=== PATIENT | female | born 1965 | race Asian ===

== ENCOUNTER 2017-03-08 14:55 | Inpatient (IN) | payer OTHER ==
[~2017-03-08] VITALS: Ht 160 cm; Wt 49.9 kg
--- NOTE | 2017-03-08 14:55 | NUR ---
Patient BIBA ACLS accompanied by Afsaneh ALLEN, transferred to bed 3. Dr. Rabago and RN evaluating patient at bedside.
[2017-03-08 14:57] VITALS: BP 133/72
--- NOTE | 2017-03-08 15:00 | NUR ---
52 F BIBA FROM WORK FOR NEAR-SYNCOPAL EPISODE. PT STATES SHE WAS AT WORK DRINKING WATER AND BEGAN TO FEEL LIGHTHEADED AND WEAK, DENIES LOC. B/P ON SCENE 50/37, HR 42. UPON ARRIVAL TO ER B/P 133/74, HR 74. PT A&O X4, ABLE TO ANSWER QUESTIONS APPROPRIATELY; NO ACUTE NEURO DEFICITS NOTED; RR ARE EVEN AND UNLABORED; PT IS NORMAL SINUS ON CM; PT DENIES ANY RECENT FEVERS, CP, SOB, OR COUGH AT THIS TIME; PATIENT STATES PAIN OF 0/10 AT THIS TIME; VSS; NAD; PATIENT POSITIONED FOR COMFORT; HOB ELEVATED; BEDRAILS UP X2; BED DOWN. ER MD MADE AWARE OF PT STATUS. WILL CONTINUE TO MONITOR
[2017-03-08] MEDS ORDERED: LOSA25TA22 PO (15:01)
[2017-03-08 15:11] LABS: BASOPHILS # (AUTO) 0.4 K/uL (0.00-0.22); EOSINOPHILS # (AUTO) 0.1 K/uL (0-0.4); HEMATOCRIT 35.2 % (36-48); HEMOGLOBIN 11.7 g/dL (12.0-16.0); LYMPHOCYTES # (AUTO) 1.4 K/uL (2.5-16.5); MEAN CORPUSCULAR HEMOGLOBIN 32 pg (27-31); MEAN CORPUSCULAR HGB CONC 33 g/dL (33-37); MEAN CORPUSCULAR VOLUME 96 fL (80-94); MONOCYTES # (AUTO) 0.7 K/uL (0.8-1.0); NEUTROPHILS # (AUTO) 6.2 K/uL (1.8-7.7); PLATELET COUNT (AUTO) 373 K/uL (140-450); RED BLOOD CELL COUNT(AUTO) 3.66 MIL/uL (4.20-5.40); RED CELL DISTRIBUTION WIDTH 12.5 % (11.6-13.7); WHITE BLOOD COUNT (AUTO) 8.8 K/uL (4.8-10.8)
[2017-03-08 15:31] LABS: PROTHROMBIN TIME 10.7 secs (10.8-13.4)
[2017-03-08 15:33] LABS: ALBUMIN 3.9 g/dL (3.4-5.0); ANION GAP 8.6 (8-16); CARBON DIOXIDE 29.1 mmol/L (21-32); CREATININE 0.7 mg/dL (0.6-1.3); TOTAL BILIRUBIN 0.3 mg/dL (0.0-1.0)
[2017-03-08 15:37] LABS: POTASSIUM 2.7 mmol/L (3.5-5.1)
[2017-03-08] MEDS ORDERED: POTASSIUM CHLORIDE 10 MEQ TABER PO ONE (15:50)
[2017-03-08] MEDS ORDERED: MORPHINE SULFATE 2 MG/ML SYR IVP PRN (16:45)
[2017-03-08] MEDS ORDERED: ACETAMINOPHEN 325 MG TAB PO PRN (16:45)
[2017-03-08] MEDS ORDERED: HYDROcodone/APAP 7.5/325 MG 1 TAB PO PRN (16:45)
[2017-03-08] MEDS ORDERED: ONDANSETRON 4 MG/2 ML VIAL IM/IVP PRN (16:45)
--- NOTE | 2017-03-08 16:48 | NUR ---
pt is resting in pt; nad; vss
[2017-03-08 17:42] LABS: CHOL/HDL RATIO 2.6 (1-4.5); FREE T4 (FREE THYROXINE) 0.88 ng/dL (0.76-1.46); PHOSPHORUS 3.2 mg/dL (2.5-4.9); THYROID STIMULATING HORMONE 1.28 uIU/mL (0.34-3.74)
[2017-03-08 17:51] LABS: BILIRUBIN,URINE NEGATIVE (NEGATIVE); BLOOD, URINE NEGATIVE (NEGATIVE); LEUKOCYTE ESTERASE ,URINE 1+ (NEGATIVE); NITRITE, URINE NEGATIVE (NEGATIVE); UGLUCOSE NEGATIVE (NEGATIVE)
[2017-03-08 17:53] LABS: APPEARANCE,URINE HAZY (CLEAR); COLOR,URINE STRAW (YELLOW)
--- NOTE | 2017-03-08 17:54 | NUR ---
pt on ra; pulse qf=549%; nad; will continue to monitor
--- NOTE | 2017-03-08 18:03 | NUR ---
pt ambulated to and from bathroom with steady gait; pt is aox4; nad; vss
[2017-03-08 18:08] LABS: RBC,URINE NONE SEEN /HPF (0-5)
--- NOTE | 2017-03-08 18:20 | NUR ---
Patient will be admitted to care of [facility]. Admited to Tele. Will go to room 121b. Belongings list completed. Report to Miguelito LOPEZ.
[2017-03-08 18:50] VITALS: BP 123/67
--- NOTE | 2017-03-08 18:50 | NUR ---
PT ARRIVED ON GURNEY. AMBULATED TO BED. NO ACUTE DISTRESS NOTED. A LITTLE WEAKNESS NOTED. APPLIED FALL PRECAUTION, SOCKS, WRIST BAND AND SIGN. PT HAS IV ON L AC 20G SL AT THIS TIME. ORIENTED PT TO ROOM AND USE OF CALL LIGHT. VS WNL. CALL LIGHT WITHIN REACH. WILL CONTINUE TO MONITOR.
[2017-03-08 19:19] LABS: BARBITURATE, URINE NEG. ng/ml (NEG <=200); BENZODIAZEPINE, URINE NEG. ng/mL (NEG <=200); CANNABINOID, URINE NEG. ng/mL (NEG <=50); COCAINE, URINE NEG. ng/mL (NEG <=300); OPIATE, URINE NEG. ng/mL (NEG <=2000); PHENCYCLIDINE SCREEN,URINE NEG. ng/mL (NEG <=25)
--- NOTE | 2017-03-08 19:23 | NUR ---
ENDORSED CARE OF PT TO MERCEDEZ LOPEZ AT BEDSIDE. PT IN STABLE CONDITION.
--- NOTE | 2017-03-08 19:30 | NUR ---
ADMITTED 52 YEARS OLD FEMALE FROM ER VIA [facility] FOR NEAR SYNCOPAL EPISODE. SEE NURSING ADMISSION ASSESSMENT AND HISTORY. PLAN OF CARE DISCUSSED WITH PATIENT. ORIENTED TO ROOM AND UNIT ROUTINES. CALL LIGHT WITHIN REACH.
[2017-03-08] MEDS ORDERED: MECLIZINE 25 MG TAB PO PRN (19:40)
[2017-03-08 19:42] LABS: CARBON DIOXIDE 29.6 mmol/L (21-32); CREATININE 0.6 mg/dL (0.6-1.3); POTASSIUM 3.6 mmol/L (3.5-5.1)
[2017-03-08] MEDS: PSYLLIUM 12.2 GM/PKT PO SCH (20:43)
[2017-03-08] MEDS: NACL 0.9% 1,000 ML IV SCH (20:44)
--- NOTE | 2017-03-08 21:30 | NUR ---
CAROTID ULTRASOUND COMPLETED.
[2017-03-08 21:52] VITALS: BP 125/74
[2017-03-09 00:04] VITALS: BP 122/66
--- NOTE | 2017-03-09 00:05 | NUR ---
VITAL SIGNS STABLE. NO COMPLAINS. AFEBRILE. CALL LIGHT WITHIN REACH. SLEEPING WELL. EASILY AROUSABLE.
[2017-03-09 04:34] VITALS: BP 138/79
--- NOTE | 2017-03-09 04:35 | NUR ---
SLEEPING. EASILY AROUSABLE. NO COMPLAINS. VITAL SIGNS STABLE. CALL LIGHT WITHIN REACH.
[2017-03-09 07:05] LABS: BASOPHILS # (AUTO) 0.1 K/uL (0.00-0.22); BASOPHILS % (AUTO) 1.2 % (0.0-2.0); EOSINOPHILS # (AUTO) 0.2 K/uL (0-0.4); EOSINOPHILS % (AUTO) 2.2 % (0.0-4.0); HEMATOCRIT 35.8 % (36-48); HEMOGLOBIN 12.1 g/dL (12.0-16.0); LYMPHOCYTES # (AUTO) 1.7 K/uL (2.5-16.5); LYMPHOCYTES % (AUTO) 20.8 % (20.5-51.1); MEAN CORPUSCULAR HEMOGLOBIN 32 pg (27-31); MEAN CORPUSCULAR HGB CONC 34 g/dL (33-37); MEAN CORPUSCULAR VOLUME 96 fL (80-94); MONOCYTES # (AUTO) 0.5 K/uL (0.8-1.0); MONOCYTES % (AUTO) 6.3 % (1.7-9.3); NEUTROPHILS # (AUTO) 5.7 K/uL (1.8-7.7); NEUTROPHILS % (AUTO) 69.5 % (42.2-75.2); PLATELET COUNT (AUTO) 365 K/uL (140-450); RED BLOOD CELL COUNT(AUTO) 3.74 MIL/uL (4.20-5.40); RED CELL DISTRIBUTION WIDTH 12.7 % (11.6-13.7); WHITE BLOOD COUNT (AUTO) 8.2 K/uL (4.8-10.8)
--- NOTE | 2017-03-09 07:15 | NUR ---
ENDORSED CARE AT BEDSIDE WITH LALITHA LOPEZ, PATIENT IN STABLE CONDITION.
--- NOTE | 2017-03-09 07:30 | NUR ---
RECEIVED PT IN BED. AWAKE. ALERT ORIENTEDX4. JUST CAME OUT FROM BATHROOM, AMBULATORY. NO SOB NOTED, DENIES ANY PAIN OR DISCOMFORT AT THIS TIME. POSITIVE BOWEL SOUNDS NOTED ON FOUR QUADRANTS. SAFETY PRECAUTION IN PLACE. CALL LIGHT WITHIN REACH.
[2017-03-09 07:44] LABS: ANION GAP 10.1 (8-16); CARBON DIOXIDE 27.1 mmol/L (21-32); CREATININE 0.7 mg/dL (0.6-1.3); POTASSIUM 4.2 mmol/L (3.5-5.1)
[2017-03-09 08:00] VITALS: BP 134/78
[2017-03-09] MEDS: MULTIVITAMIN/MINERALS 1 TAB PO SCH (08:40)
[2017-03-09] MEDS: PSYLLIUM 12.2 GM/PKT PO SCH (08:41)
--- NOTE | 2017-03-09 08:43 | NUR ---
PATIENT HAS BEEN SCREENED AND CATEGORIZED LOW NUTRITION RISK. PATIENT WILL BE SEEN WITHIN 7 DAYS OF ADMISSION. 03/15/[address]
[2017-03-09 08:46] LABS: T4 (THYROXINE) 6.6 ug/dL (4.5-12.0)
--- NOTE | 2017-03-09 09:08 | NUR ---
CM NOTE INITIAL REVIEW FAXED TO [facility] OF [place] [phone], PH [phone] [phone]
[2017-03-09 12:00] VITALS: BP 134/83
[2017-03-09] MEDS: NACL 0.9% 1,000 ML IV SCH (14:23)
--- NOTE | 2017-03-09 15:36 | NUR ---
PT AWAKE IN BED. MADE AWARE OF AWAITING CONSULT FOR DR. GRIFFITH. PT VERBALIZED UNDERSTANDING. NO SOB NOTED. DENIES ANY PAIN OR DISCOMFORT AT THIS TIME.
[2017-03-09 16:00] VITALS: BP 140/78
[2017-03-09] MEDS ORDERED: LOSARTAN 25 MG TAB PO SCH (16:40)
[2017-03-09] MEDS: LOSARTAN 25 MG TAB PO SCH (17:11)
--- NOTE | 2017-03-09 17:32 | NUR ---
PT VERBALIZED SHE WANTED TO GO HOME TODAY. EXPLAINED TO PT THAT STILL WAITING FOR CARDIO CONSULT. PT REQUESTED TO SEE DR. VARGAS. MADE AWARE AND CAME TO SEE PT.
--- NOTE | 2017-03-09 18:58 | NUR ---
PT KEPT CLEAN, DRY AND COMFORTABLE, NEEDS ATTENDED. NO SOB NOTED. DENIES ANY PAIN OR DISCOMFORT AT THIS TIME. WILL ENDORSE TO NEXT SHIFT FOR CONTINUITY OF CARE, PT ON STABLE CONDITION.
--- NOTE | 2017-03-09 19:30 | NUR ---
RECEIVED REPORT FROM DAY RN AT BEDSIDE, PATIENT IS AAOX4 ON ROOM AIR, NO SOB OR SIGN OF DISTRESS AT THIS TIME, IV TO LEFT AC PATENT AND INTACT, SKIN INTACT, PATIENT DENIES PAIN AT THIS TIME. DISCUSSED PLAN OF CARE WITH PATIENT , PT VERBALIZED UNDERSTANDING. CALL LIGHT WITHIN REACH. WILL CONTINUE TO MONITOR. FAMILY AT BEDSIDE.
[2017-03-09 20:00] VITALS: BP 135/76
--- NOTE | 2017-03-09 22:00 | NUR ---
PATIENT RESTING IN BED, NO SIGN OF DISTRESS AT THIS TIME, CALL LIGHT WITHIN REACH. WILL CONTINUE TO MONITOR.
[2017-03-09] MEDS ORDERED: ZOLPIDEM 5 MG TAB PO PRN (22:10)
[2017-03-10] VITALS: BP 124/68
--- NOTE | 2017-03-10 00:05 | NUR ---
VITAL SIGNS STABLE, PATIENT SLEEPING, NO SIGN OF DISTRESS, CALL LIGHT WITHIN REACH. WILL CONTINUE TO MONITOR
[2017-03-10] MEDS: NACL 0.9% 1,000 ML IV SCH (02:05)
--- NOTE | 2017-03-10 02:18 | NUR ---
PATIENT SLEEPING, NO SIGN OF DISTRESS, CALL LIGHT WITHIN REACH. WILL CONTINUE TO MONITOR.
[2017-03-10 04:00] VITALS: BP 137/80
--- NOTE | 2017-03-10 04:19 | NUR ---
VITAL SIGNS STABLE, NO SOB OR SIGN OF DISTRESS, CALL LIGHT WITHIN REACH. WILL CONTINUE TO MONITOR.
[2017-03-10 06:14] LABS: BASOPHILS # (AUTO) 0.2 K/uL (0.00-0.22); BASOPHILS % (AUTO) 2.1 % (0.0-2.0); EOSINOPHILS # (AUTO) 0.2 K/uL (0-0.4); EOSINOPHILS % (AUTO) 2.8 % (0.0-4.0); HEMATOCRIT 32.8 % (36-48); HEMOGLOBIN 11.2 g/dL (12.0-16.0); LYMPHOCYTES # (AUTO) 1.6 K/uL (2.5-16.5); LYMPHOCYTES % (AUTO) 18.6 % (20.5-51.1); MEAN CORPUSCULAR HEMOGLOBIN 32 pg (27-31); MEAN CORPUSCULAR HGB CONC 34 g/dL (33-37); MEAN CORPUSCULAR VOLUME 95 fL (80-94); MONOCYTES # (AUTO) 0.6 K/uL (0.8-1.0); MONOCYTES % (AUTO) 7.2 % (1.7-9.3); NEUTROPHILS # (AUTO) 5.9 K/uL (1.8-7.7); NEUTROPHILS % (AUTO) 69.3 % (42.2-75.2); PLATELET COUNT (AUTO) 341 K/uL (140-450); RED BLOOD CELL COUNT(AUTO) 3.46 MIL/uL (4.20-5.40); RED CELL DISTRIBUTION WIDTH 12.8 % (11.6-13.7); WHITE BLOOD COUNT (AUTO) 8.5 K/uL (4.8-10.8)
[2017-03-10 06:37] LABS: ANION GAP 8.7 (8-16); CARBON DIOXIDE 26.9 mmol/L (21-32); CREATININE 0.6 mg/dL (0.6-1.3); POTASSIUM 3.6 mmol/L (3.5-5.1)
--- NOTE | 2017-03-10 07:44 | NUR ---
ENDORSED PATIENT TO DAY RN, PATIENT IN STABLE CONDITION
--- NOTE | 2017-03-10 08:10 | NUR ---
CM NOTE CONCURRENT REVIEW FAXED TO [facility] [place] [phone], PH [phone] [phone]
[2017-03-10 08:27] VITALS: BP 118/78
[2017-03-10] MEDS ORDERED: SULF-58 PO (08:45)
[2017-03-10] MEDS: LOSARTAN 25 MG TAB PO SCH (09:41)
[2017-03-10] MEDS: PSYLLIUM 12.2 GM/PKT PO SCH (09:42)
[2017-03-10] MEDS: MULTIVITAMIN/MINERALS 1 TAB PO SCH (09:42)
--- NOTE | 2017-03-10 09:50 | NUR ---
WENT OVER D/C INSTRUCTIONS. PT TO F/U WITH PCP SCHEDULED, FINISH BACTRIM BID X 5 DAYS. RX SENT TO [facility]. PT IS AWARE. ANSWERED ALL QUESTIONS. PT VERBALIZED UNDERSTANDING. REMOVED IV, CANNULA INTACT. NO BLEEDING NOTED. REMOVED ID BANDS. REMOVED TELE MONITOR. PT IS TO GET DRESSED AND LET US KNOW WHEN HER RIDE GETS HERE. WILL CONTINUE TO MONITOR PT.
== END 2017-03-10 10:25 | disposition home or self-care (01) | DRG 74 ==
LOC: MED 14:55 → MTU 16:52
PROVIDERS: ADMIT Family Medicine; ATTEND Family Medicine
DX: G90.9 Disorder of the autonomic nervous system, unspecified (principal); E87.1 Hypo-osmolality and hyponatremia; I10 Essential (primary) hypertension; N39.0 Urinary tract infection, site not specified; E87.6 Hypokalemia; D53.9 Nutritional anemia, unspecified
CPT/HCPCS: 36415; 70450; 71010; 80048; 80053; 80305; 81001; 82150; 83036; 83690; 83735; 84100; 84436; 84439; 84443; 84479; 84484; 85025; 85610; 85730; 87081; 87086; 93005; 93880; 99285; J0696; J7030; J7060; Q0092